=== PATIENT | female | born 1975 | race Caucasian/White ===

== ENCOUNTER 2016-12-05 16:24 | Emergency (ER) | payer OTHER ==
[~2016-12-05] VITALS: Ht 162.6 cm; Wt 88.8 kg
[~2016-12-05 16:24] MED LIST: ATOR-22 PO; IBUP-103 PO; METF1TAB53 PO; lidocaine cream TOP
[2016-12-05 16:30] VITALS: TEMP 36.7; Ht 162.6 cm; Wt 88.8 kg
[2016-12-05] MEDS ORDERED: DEXAMETHASONE SOD INJ 4 MG/ML VIAL IV STA (16:55)
[2016-12-05] MEDS ORDERED: LORAZEPAM 2 MG/ML 1 ML VIAL IV STA ×2 (16:58→20:14)
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
[2016-12-05 17:32] LABS: BASO % 0.5 %; BASO ABS # 0.05 K/uL (0-0.2); COMPLETE YES; HEMATOCRIT 45.8 % (37-47); IG% 0.2 %; LYMPH % 34.3 %; LYMPH ABS # 3.79 K/uL (1.2-3.4); MEAN CELL VOLUME 89.6 fL (80-100); MEAN CORPUSCULAR HEMOGLOBIN 31.7 pg (25-34); MEAN CORPUSCULAR HGB CONC 35.4 g/dl (32-36); MEAN PLATELET VOLUME 11.4 fL (7.4-10.4); MONO % 5.2 %; NEUT % 57.8 %; PLATELET COUNT 229 K/uL (130-400); RED BLOOD COUNT 5.11 M/uL (4.2-5.4); WHITE BLOOD COUNT 11.04 K/uL (4.8-10.8)
[2016-12-05 17:41] LABS: PROTHROMBIN TIME (PATIENT) 11.1 SECONDS (9.0-12.0)
[2016-12-05 17:41] LABS: POINT OF CARE PRO-BNP < 15 pg/ml (0-450); POINT OF CARE TROPONIN I < 0.030 ng/ml (0-0.045)
--- NOTE | 2016-12-05 17:55 | DIAGNOSTIC IMAGING REPORT ---
CHEST 2 VIEWS ROUTINE HISTORY: 41 years-old Female acute chest pain. COMPARISON: None available TECHNIQUE: Frontal and lateral views of the chest FINDINGS: Cardiomediastinal and hilar silhouettes are within normal limits. No pneumothorax, pleural effusion or focal airspace consolidation. No overt pulmonary edema.] Cholecystectomy clips are noted. The bones are grossly intact. IMPRESSION: No acute cardiopulmonary process The above report was generated using voice recognition software. It may contain grammatical, syntax or spelling errors. Electronically signed by: Christopher Alford M.D. 12/05/2016 5:54 PM Dictated Date/Time: 12/05/2016 5:53 PM
[2016-12-05 18:07] LABS: BLOOD UREA NITROGEN 4 mg/dl (7-18); BUN/CREATININE RATIO 6.8 (10-20); CALCIUM 9.2 mg/dl (8.5-10.1); CARBON DIOXIDE 24 mmol/L (21-32); CHLORIDE 106 mmol/L (98-107); CREATININE 0.58 mg/dl (0.60-1.20); GLUCOSE 133 mg/dl (70-99); SODIUM 139 mmol/L (136-145)
[2016-12-05 18:18] LABS: ALKALINE PHOSPHATASE 92 U/L (45-117); ALT/SGPT 35 U/L (12-78); AST/SGOT 31 U/L (15-37)
[2016-12-05 19:19] LABS: URINE APPEARANCE CLEAR (CLEAR); URINE BILIRUBIN NEG (NEG); URINE COLOR YELLOW; URINE NITRITE NEG (NEG); URINE PH 5.5 (4.5-7.5); URINE SPECIFIC GRAVITY 1.012 (1.000-1.030); UROBILINOGEN NEG (NEG)
[2016-12-05 19:21] LABS: MANUAL MICROSCOPIC REQUIRED? NO; REVIEW REQ? NO
--- NOTE | 2016-12-05 20:16 | EMERGENCY ROOM VISIT NOTE ---
ED Visit Note First contact with patient: 16:42 The patient was seen and examined with Nicole marquez PA-C. I agree with the history, physical and findings. Please see the note for disposition and details. The patient has had shoulder and chest symptoms for greater than 8 hours with no acute ischemic changes on ECG and negative troponin and d-dimer. She also has complaints of back pain and does note a history of recent breast abscess. Her white count was mildly elevated as well as the ESR and CRP. Because of this the patient was sent for MR imaging.
--- NOTE | 2016-12-05 22:49 | DIAGNOSTIC IMAGING REPORT ---
LUMBAR SPINE COMBINATION HISTORY: Pain. Fever. increasing back pain/elevated white count TECHNIQUE: Multiplanar multisequence MRI of the lumbar spine was performed both before and after the intravenous administration of contrast. COMPARISON: None. FINDINGS: For the purpose of the report the L5-S1 disc space will be located on axial image 27 of 30. Moderate degenerative disc change throughout the entire lumbar as well as low thoracic region. Posterior disc herniations L5-S1 and L4-L5. Posterior bulging discs at T11-T12. No evidence for bone marrow replacing process. No significant postcontrast enhancement area L1-L2: No significant central canal or neural foraminal narrowing. L2-L3: No significant central canal or neural foraminal narrowing. L3-L4: No significant central canal or neural foraminal narrowing. L4-L5: Broad-based central bulging disc. Minimal impact upon the anterior thecal sac. L5-S1: Central disc herniation with minimal impact upon the anterior thecal sac. Hypertrophic change left lateral facet. Significant narrowing left neuroforamina. Right neuroforamina is patent. No evidence for abnormal postcontrast enhancement. No abscess or collection. IMPRESSION: 1. Central disc herniation L5-S1 creating only mild impact upon the anterior thecal sac. 2. Significant left foraminal stenosis at L5-S1 secondary to hypertrophic change of the left lateral facet and ligamentum flavum. 3. Mild broad-based disc bulge L4-L5. 4. No evidence for abnormal postcontrast enhancement. No evidence for abscess or collection The above report was generated using voice recognition software. It may contain grammatical, syntax or spelling errors. Electronically signed by: Florentin Guevara M.D. 12/05/2016 10:47 PM Dictated Date/Time: 12/05/2016 10:43 PM
[2016-12-05] MEDS ORDERED: LORA-741 PO (23:14)
[2016-12-05] MEDS ORDERED: HYDR-5688 PO (23:14)
[2016-12-05] MEDS ORDERED: METH4PAK PO (23:14)
[2016-12-05 23:18] VITALS: BP 122/94; PULSE 104; O2SAT 93
== END 2016-12-05 23:30 | disposition home or self-care (01) ==
LOC: C.EDB 16:28 → C.EDC 23:30
DX: M54.5 Low back pain (principal); F41.9 Anxiety disorder, unspecified; R07.9 Chest pain, unspecified; E11.9 Type 2 diabetes mellitus without complications; E78.5 Hyperlipidemia, unspecified; M79.7 Fibromyalgia; F43.10 Post-traumatic stress disorder, unspecified; F17.200 Nicotine dependence, unspecified, uncomplicated